=== PATIENT | male | born 1980 | race Caucasian/White ===

== ENCOUNTER 2019-11-27 14:33 | Emergency (ER) | payer BC, OTHER ==
--- NOTE | 2019-11-27 14:36 | PDOC ---
Rapid Medical Evaluation Chief Complaint: Headache Time Seen by Provider: 11/27/19 14:34 Medical Evaluation: Allergies Allergy/AdvReac Type Severity Reaction Status Date / Time No Known Allergies Allergy Verified 12/06/13 11:33 11/27/19 14:35 I have performed a brief in-person evaluation of this patient. The patient presents with a chief complaint of: WONG and facial pressure x several days. No dizziness, n/v/f/c. Pt denies pmhx but per records from 2013, has h/o HIV/AIDs Pertinent physical exam findings:stable, NAD I have ordered the following:nothing The patient will proceed to the ED for further evaluation. Discharge Disposition - Diagnosis Headache Qualifiers: Headache type: unspecified Headache chronicity pattern: acute headache Intrac tability: not intractable Qualified Code(s): R51 - Headache - Referrals - Patient Instructions - Post Discharge Activity
[2019-11-27 14:38] VITALS: BP 154/91; PULSE 113; TEMP 97.6; BMI 25.5
--- NOTE | 2019-11-27 16:15 | PDOC ---
History of Present Illness - General Chief Complaint: Headache Stated Complaint: HEADACHE Time Seen by Provider: 11/27/19 14:34 - History of Present Illness Initial Comments: 11/27/19 16:12 39-year-old male with a past medical history of HIV presents for evaluation of facial pressure and headaches x3 days. Mild relief With Advil Past History - Medical History Allergies/Adverse Reactions: Allergies Allergy/AdvReac Type Severity Reaction Status Date / Time No Known Allergies Allergy Verified 11/27/19 14:38 Home Medications: Ambulatory Orders Elviteg/Cob/Emtri/Tenofo Disop [Stribild Tablet] 1 each PO DAILY 12/06/13 Penicillin V Potassium [Pen Vee K -] 500 mg PO TID #21 tablet 12/22/16 Budesonide [Rhinocort Allergy] 1 spray NS ONCE #1 spray.pump 11/27/19 Cetirizine HCl/Pseudoephedrine [Zyrtec-D Tablet] 1 each PO DAILY #30 tab.er.12h 11/27/19 COPD: No Diabetes: No - Psycho-Social/Smoking History Smoking Status: No Smoking History: Former smoker Have you smoked in the past 12 months: No Number of Cigarettes Smoked Daily: 0 If you are a former smoker, when did you quit?: 2003 Information on smoking cessation initiated: No - Substance Abuse Hx (Audit-C & DAST Scrn) How often the patient has a drink containing alcohol: Never Score: In Men: 4 or > Positive; In Women: 3 or > Positive: 0 Screen Result (Pos requires Nsg. Audit-10AR): Negative Review of Systems - Review of Systems HEENTM: Yes: See HPI, Nose Congestion Neurological: Yes: Headache *Physical Exam - Vital Signs Last Vital Signs Temp Pulse Resp BP Pulse Ox 97.6 F 113 H 20 154/91 99 11/27/19 14:35 11/27/19 14:35 11/27/19 14:35 11/27/19 14:35 11/27/19 15:16 - Physical Exam 11/27/19 16:13 GENERAL: The patient is awake, alert, and fully oriented, in no acute distress. HEAD: Normal with no signs of trauma. EYES: sclera anicteric, conjunctiva clear. ENT: Ears normal tympanic membranes normal oropharynx clear uvula midline Mild tenderness over the frontal maxillary sinuses NECK: Normal range of motion LUNGS: Breath sounds equal, clear to auscultation bilaterally. No wheezes, and no crackles. HEART: S1 and S2 without murmur, rub or gallop. ABDOMEN: Soft, nontender, normoactive bowel sounds. No guarding, no rebound. No masses. EXTREMITIES: Normal range of motion, no edema. No clubbing or cyanosis. No cords, erythema, or tenderness. NEUROLOGICAL: Cranial nerves II through XII grossly intact. PSYCH: Normal mood, normal affect. SKIN: Warm, Dry, normal turgor, no rashes or lesions noted. Medical Decision Making - Medical Decision Making 11/27/19 16:13 3 days of symptoms sinusitis is unlikely, we will treat for seasonal allergies with steroidal nasal spray and decongestant follow-up with ENT I have reviewed the pathophysiology with the patient. They are in agreement with the treatment plan all questions were answered to their satisfaction. Understanding for follow-up without fail was also conveyed to the patient. Again they are in agreement. Discharge - Discharge Information Problems reviewed: Yes Clinical Impression/Diagnosis: Seasonal allergies Headache Qualifiers: Headache type: unspecified Headache chronicity pattern: acute headache Intractability: not intractable Qualified Code(s): R51 - Headache Condition: Stable Disposition: HOME - Admission No - Additional Discharge Information Prescriptions: Budesonide [Rhinocort Allergy] 1 spray NS ONCE #1 spray.pump Cetirizine HCl/Pseudoephedrine [Zyrtec-D Tablet] 1 each PO DAILY #30 tab.er.12h - Follow up/Referral Referrals: Smooth Metz MD [Staff Physician] - - Patient Discharge Instructions Additional Instructions: Please take the medication as directed and return to the emergency room should symptoms worsen. Without fail follow-up with ear nose and throat doctor in 1 to 2 days for further evaluation and treatment options. - Post Discharge Activity
== END 2019-11-27 16:30 | disposition home or self-care (01) ==
LOC: JER 14:33
DX: R51 Headache (principal); J30.2 Other seasonal allergic rhinitis
CPT/HCPCS: 99283-25